=== PATIENT | female | born 1985 | race Native Hawaiian/Other Pacific Islander ===

== ENCOUNTER 2017-11-24 18:07 | Emergency (ER) | payer OTHER ==
[2017-11-24 18:27] VITALS: TEMP 97.8; O2SAT 100
[2017-11-24 19:02] VITALS: BP 147/89; PULSE 76; RESP 18
--- NOTE | 2017-11-24 19:10 | ED PDOC ---
HPI: Chest Pain Time Seen by Provider: 11/24/17 18:40 Chief Complaint (Nursing): Chest Pain Chief Complaint (Provider): Chest pain History Per: Patient History/Exam Limitations: no limitations Onset/Duration Of Symptoms: Hrs Additional Complaint(s): 32 yo female with HTN presents with left sided chest and neck pain. PT states it began last night. Pt denies fever/chills or cough. PT denies SOB, dizziness. Pt states she would like her BP repeated. PT states she does not want blood work completed. PT states that she prefers to folllow-up with her lapper if she is not having an MT. Past Medical History Reviewed: Historical Data, Nursing Documentation, Vital Signs Vital Signs: Last Vital Signs Temp 97.8 F 11/24/17 18:23 Pulse 76 11/24/17 19:02 Resp 18 11/24/17 19:02 BP 147/89 11/24/17 19:02 Pulse Ox 100 11/24/17 19:02 - Medical History PMH: HTN - Surgical History Surgical History: No Surg Hx - Family History Family History: States: No Known Family Hx - Living Arrangements Living Arrangements: With Family - Allergies Allergies/Adverse Reactions: Allergies Allergy/AdvReac Type Severity Reaction Status Date / Time No Known Allergies Allergy Verified 11/24/17 18:23 HENRY Risk Score for UA/NSTEMI - HENRY Risk Score Age > 64: NO 3 or more CAD Risk Factors: NO Known CAD (Stenosis greater than 50%): NO Aspirin use in past 7 days: NO Severe Angina: NO EKG ST changes greater than 0.5mm: NO HENRY Score: 0 Risk %: 5% Review of Systems ROS Statement: Except As Marked, All Systems Reviewed And Found Negative Constitutional: Negative for: Fever, Chills Cardiovascular: Positive for: Chest Pain (Non-pleuritic ) Respiratory: Negative for: Cough, Shortness of Breath Physical Exam - Reviewed Nursing Documentation Reviewed: Yes Vital Signs Reviewed: Yes - Physical Exam Appears: Positive for: Well, Non-toxic, No Acute Distress Head Exam: Positive for: ATRAUMATIC, NORMAL INSPECTION, NORMOCEPHALIC Skin: Positive for: Normal Color, Warm, DRY Eye Exam: Positive for: Normal appearance ENT: Positive for: Normal ENT Inspection Neck: Positive for: Normal, Painless ROM Cardiovascular/Chest: Positive for: Regular Rate, Rhythm, Chest Non Tender, Other (No chest pain with activation of pectoralis muscles against resistance ) Respiratory: Positive for: CNT, Normal Breath Sounds Gastrointestinal/Abdominal: Positive for: Normal Exam, Bowel Sounds, Soft Back: Positive for: Normal Inspection Extremity: Positive for: Normal ROM Neurologic/Psych: Positive for: Alert, Oriented - ECG O2 Sat by Pulse Oximetry: 100 Medical Decision Making Medical Decision Making: Discussed risk factors and symptoms of MT with patient. Pt states mother had MT at age 50. Pt demonstrates understanding the there is no way of excluding MT with out labs/troponin being completed. Disposition - Clinical Impression Clinical Impression: Chest pain - Patient ED Disposition Is Patient to be Admitted: No Counseled Patient/Family Regarding: Diagnosis, Need For Followup - Disposition Disposition: Routine/Home Disposition Time: 19:07 Condition: GOOD Instructions: Heart Disease in Women (DC), Chest Pain (DC)
== END 2017-11-24 19:52 | disposition home or self-care (01) ==
LOC: H.ER 18:07
DX: R07.89 Other chest pain (principal); I10 Essential (primary) hypertension